=== PATIENT | female | born 1975 | race American Indian/Alaskan Native ===

== ENCOUNTER 2020-03-03 13:04 | Emergency (ER) | payer MEDICAID, OTHER ==
[2020-03-03] MEDS ORDERED: Sodium Chloride 0.9% 1,000 ML IV ONE (13:20)
--- NOTE | 2020-03-03 13:22 | EDM.PDOC ---
ED HPI GENERAL MEDICAL PROBLEM - General Chief Complaint: Abdominal Pain Stated Complaint: STOMACH PAIN Time Seen by Provider: 03/03/20 13:20 Source of Information: Reports: Patient History Limitations: Reports: No Limitations - History of Present Illness INITIAL COMMENTS - FREE TEXT/NARRATIVE: HISTORY AND PHYSICAL: History of present illness: Patient is a 44-year-old female who presents to the emergency room with complaints of incisional pain to her mid abdomen. She states approximately 1 year ago she had abdominal hernia repair and believes the provider had put mesh in. Since that time she has had some incisional pain and over the past few months has noticed blue wire/string coming from the incision site. She states she is able to pull on it approximately 1 inch out of her abdomen although feels like it is attached to something. This last summer she did have some imaging of her abdomen and was told she had and incisional abscess and was placed on antibiotics. The provider at that time had made no comment or suggestion about the blue string. Recently moved to [place] and went to the [facility] to establish care, they recommended she come here to the emergency room for evaluation. She has no drainage or surrounding redness at the incision site. Review of systems: As per history of present illness and below otherwise all systems reviewed and negative. Past medical history: As per history of present illness and as reviewed below otherwise noncontributory. Surgical history: As per history of present illness and as reviewed below otherwise noncontributory. Social history: See social history for further information Family history: As per history of present illness and as reviewed below otherwise noncontributory. Physical exam: General: Well developed and well nourished. Alert and orientated x 3. Nontoxic in appearance and in no acute distress. Vital signs are stable and have been reviewed by me. Nursing notes were reviewed. HEENT: Atraumatic, normocephalic, pupils equal and reactive bilaterally, negative for conjunctival pallor or scleral icterus, mucous membranes moist, TMs normal bilaterally, throat clear, neck supple, nontender, trachea midline. No drooling or trismus noted. No meningeal signs. No hot potato voice noted. Lungs: Clear to auscultation, breath sounds equal bilaterally, chest nontender. Normal work of breathing, no accessory muscles used. Heart: S1S2, regular rate and rhythm without overt murmur Abdomen: Soft, obese, midline scar to mid abdomen with blue sting FB noted at the distal aspect of the incision (under sternum) measuring about 0.5cm. Negative for masses or hepatosplenomegaly. Negative for costovertebral tenderness. Pelvis: Stable nontender. Skin: She has a midline scar to mid abdomen with blue sting FB noted at the distal aspect of the incision (under sternum) measuring about 0.5cm. There is scar tissue around the FB site; red but not purulent or acutely infected. Remaining skin is intact, warm, dry. No lesions or rashes noted. Hematologic: No petechiae or purpra. Mucosa appropriate color and normal nail bed color and refill. Extremities: Atraumatic, moves all extremities per self without difficulty or deficits, negative for cords or calf pain. Neurovascular unremarkable. Neuro: Awake, alert, oriented. Cranial nerves II through XII unremarkable. Cerebellum unremarkable. Motor and sensory unremarkable throughout. Exam nonfocal. Psychiatric: Mood and affect are appropriate. Normal thought process. Answering questions appropriately. Notes: Lab work is unremarkable. CT of abdomen/pelvis shows an extensive postoperative change of the anterior abdominal wall status post ventral hernia repair with postoperative superficial soft tissue thickening and peripheral soft tissue stranding. No evidence of reherniation or obstructive pathology. There is minimal abutment of the midtransverse colon without evidence of josé luis herniation. I have spoke with Dr Oden about this case, she is agreeable that this patient is able to follow up as outpatient. She happened to be in the area and took a quick look at the site. I have spoken with the patient/caregiver and discussed today's findings, in addition to providing specific details for plan of care. Reassessment at the time of disposition demonstrates that the patient is in no acute distress. The patient has remained stable throughout the entire ED visit and is without objective evidence for acute process requiring urgent intervention or hospitalization. The patient is stable for discharge, counseling was provided and we discussed in great detail signs and symptoms that would prompt them to return to the Emergency Department. Medication, follow up and supportive care measures were reviewed and discussed. Voices understanding and is agreeable to plan of care. Denies any further questions or concerns at this time. Diagnostics: CBC, CMP, UA, CT abd/pelvis Therapeutics: IV fluids Prescription: None Impression: Abdominal Pain Plan: 1. Today your lab work and CT shows no acute findings. Continue to monitor the site. 2. Tylenol and/or Ibuprofen as needed as discussed. 3. We encourage you to follow up general surgeon (Dr Oden or Dr Pinzon) in the next few days for re-evaluation and further care/management. If your symptoms should worsen, new symptoms develop or any of the signs and symptoms we discuss ed should arise please return to the emergency room or call 911 (if needed). Definitive disposition and diagnosis as appropriate pending reevaluation and review of above. Duration: Chronic - Related Data Allergies Allergy/AdvReac Type Severity Reaction Status Date / Time codeine Allergy Hives Verified 03/03/20 13:48 Home Meds: Home Meds . [No Known Home Meds] 03/03/20 [History] ED ROS GENERAL - Review of Systems Review Of Systems: Comprehensive ROS is negative, except as noted in HPI. ED EXAM, GI/ABD - Physical Exam Exam: See Below (See dictation) Course - Vital Signs Last Recorded V/S: Last Vital Signs Temp 96.5 F L 03/03/20 13:49 Pulse 79 03/03/20 13:49 Resp 18 03/03/20 13:49 BP 130/79 03/03/20 13:49 Pulse Ox 99 03/03/20 13:49 - Orders/Labs/Meds Labs: Laboratory Tests 03/03/20 03/03/20 03/03/20 Range/Units 13:57 14:12 14:12 WBC 8.21 (4.0-11.0) K/uL RBC 4.36 (4.30-5.90) M/uL Hgb 13.2 (12.0-16.0) g/dL Hct 40.4 (36.0-46.0) % MCV 92.7 (80.0-98.0) fL MCH 30.3 (27.0-32.0) pg MCHC 32.7 (31.0-37.0) g/dL RDW Std Deviation 45.3 (28.0-62.0) fl RDW Coeff of Nhung 13 (11.0-15.0) % Plt Count 292 (150-400) K/uL MPV 8.60 (7.40-12.00) fL Neut % (Auto) 51.6 (48.0-80.0) % Lymph % (Auto) 33.9 (16.0-40.0) % [place] % (Auto) 5.0 (0.0-15.0) % Eos % (Auto) 8.8 H (0.0-7.0) % Baso % (Auto) 0.7 (0.0-1.5) % Neut # (Auto) 4.2 (1.4-5.7) K/uL Lymph # (Auto) 2.8 H (0.6-2.4) K/uL [place] # (Auto) 0.4 (0.0-0.8) K/uL Eos # (Auto) 0.7 (0.0-0.7) K/uL Baso # (Auto) 0.1 (0.0-0.1) K/uL Nucleated RBC % 0.0 /100WBC Nucleated RBCs # 0 K/uL Sodium 138 (136-145) mmol/L Potassium 3.6 (3.5-5.1) mmol/L Chloride 102 (98-107) mmol/L Carbon Dioxide 24.5 (21.0-32.0) mmol/L BUN 8 (7.0-18.0) mg/dL Creatinine 0.6 (0.6-1.0) mg/dL Est Cr Clr Drug Dosing 92.66 mL/min Estimated GFR (MDRD) > 60.0 ml/min Glucose 198 H (74-106) mg/dL Calcium 9.1 (8.5-10.1) mg/dL Total Bilirubin 0.4 (0.2-1.0) mg/dL AST 39 H (15-37) IU/L ALT 52 (14-63) IU/L Alkaline Phosphatase 89 (46-116) U/L Total Protein 7.8 (6.4-8.2) g/dL Albumin 3.9 (3.4-5.0) g/dL Globulin 3.9 (2.6-4.0) g/dL Albumin/Globulin Ratio 1.0 (0.9-1.6) Urine Color YELLOW Urine Appearance CLEAR Urine pH 6.0 (5.0-8.0) Ur Specific [place] >= 1.030 (1.001-1.035) Urine Protein NEGATIVE (NEGATIVE) mg/dL Urine Glucose (UA) NEGATIVE (NEGATIVE) mg/dL Urine Ketones NEGATIVE (NEGATIVE) mg/dL Urine Occult Blood NEGATIVE (NEGATIVE) Urine Nitrite NEGATIVE (NEGATIVE) Urine Bilirubin NEGATIVE (NEGATIVE) Urine Urobilinogen 0.2 (<2.0) EU/dL Ur Leukocyte Esterase NEGATIVE (NEGATIVE) Meds: Medications Discontinued Medications Generic Name Dose Route Start Last Admin Trade Name Soumya PRN Reason Stop Dose Admin Sodium Chloride 1,000 mls @ 999 mls/hr 03/03/20 13:20 03/03/20 14:06 Normal Saline IV 03/03/20 14:20 999 mls/hr STAT ONE Administration Iopamidol 100 ml 03/03/20 15:36 03/03/20 15:37 Isovue Multipack-370 (76%) IVPUSH 03/03/20 15:37 100 ml ONETIME ONE Administration Departure - Departure Time of Disposition: 16:03 Disposition: Home, Self-Care 01 Clinical Impression: Abdominal pain Qualifiers: Abdominal location: upper abdomen, unspecified Qualified Code(s): R10.10 - Upper abdominal pain, unspecified - Discharge Information Instructions: Abdominal Pain, Adult, [id number] Referrals: PCP,None [Primary Care Provider] - Forms: ED Department Discharge Additional Instructions: The following information is given to patients seen in the emergency department who are being discharged to home. This information is to outline your options for follow-up care. We provide all patients seen in our emergency department with a follow-up referral. The need for follow-up, as well as the timing and circumstances, are variable depending upon the specifics of your emergency department visit. If you don't have a primary care physician on staff, we will provide you with a referral. We always advise you to contact your personal physician following an emergency department visit to inform them of the circumstance of the visit and for follow-up with them and/or the need for any referrals to a consulting specialist. The emergency department will also refer you to a specialist when appropriate. This referral assures that you have the opportunity for follow-up care with a specialist. All of these measure are taken in an effort to provide you with optimal care, which includes your follow-up. Under all circumstances we always encourage you to contact your private physician who remains a resource for coordinating your care. When calling for follow-up care, please make the office aware that this follow-up is from your recent emergency room visit. If for any reason you are refused follow-up, please contact the [facility] Emergency Department at and asked to speak to the emergency department charge nurse. [facility] (DR PINZON OR DR ODEN) Specialty Care - General Surgery Professional Building [address] [place] [address], [address] [place] [address] Thank you for choosing the [facility] emergency department in [place] for your medical needs today. It was a pleasure caring for you. Today you were seen in the emergency department for residual suture at postoperative site. 1. Today your lab work and CT shows no acute findings. Continue to monitor the site. 2. Tylenol and/or Ibuprofen as needed as discussed. 3. We encourage you to follow up general surgeon (Dr Oden or Dr Pinzon) in the next few days for re-evaluation and further care/management. If your symptoms should worsen, new symptoms develop or any of the signs and symptoms we discussed should arise please return to the emergency room or call 911 (if needed). Sepsis Event Note (ED) - Focused Exam Vital Signs: Vital Signs Temp Pulse Resp BP Pulse Ox 03/03/20 13:49 96.5 F L 79 18 130/79 99
[2020-03-03 14:41] LABS: BLOOD UREA NITROGEN,BUN 8 mg/dL (7.0-18.0); CARBON DIOXIDE,CO2 24.5 mmol/L (21.0-32.0); CHLORIDE,CL 102 mmol/L (98-107); GLUCOSE RANDOM 198 mg/dL (74-106); POTASSIUM,K 3.6 mmol/L (3.5-5.1); SODIUM,NA 138 mmol/L (136-145)
[2020-03-03] MEDS ORDERED: Iopamidol 755 MG/ML 500 ML Multipack Bottle IVPUSH ONE (15:36)
--- NOTE | 2020-03-03 15:53 | CT ---
Indication: Patient with abdominal pain recently had mesh in hernia placement 2 weeks ago Technique: Volumetric multidetector CT images of the abdomen and pelvis were obtained after the administration of intravenous contrast. 100 cc Isovue 370 Comparison: None available. Findings: There is minimal dependent bibasilar atelectasis versus scar. There is no dense consolidation or effusion. The liver is mildly enlarged with a padding steatosis. There is incidental note made of mild postoperative pneumobilia. The portal vein is patent. The gallbladder is surgically absent. The common bile duct is not enlarged. The spleen is normal in enhancement and size. The stomach and duodenum are grossly unremarkable. The pancreas is normal in enhancement without significant atrophy. The adrenal glands are unremarkable. The kidneys demonstrate preserved corticomedullary differentiation without evidence of obstructive uropathy. Postoperative change of the colon is appreciated status post colectomy and primary reanastomosis. There is minimal stool seen throughout the colon. The appendix is not visualized. There is no significant mesenteric, retroperitoneal, or pelvic sidewall lymph nodes. The aorta is not aneurysmal with minimal scattered atherosclerotic calcification. The solid pelvic viscera are grossly unremarkable. There is no free fluid or free air. There is extensive postoperative change of the anterior abdominal wall status post ventral hernia repair with moderate superficial soft tissue thickening and mild postoperative inflammatory stranding. There is abutment of the colon adjacent to the defect, however there is no evidence of significant reherniation or obstruction. The lumbar vertebral body heights are grossly maintained with moderate multilevel degenerative disc disease. There are pedicle screws with posterior stabilization fixation. Postoperative changes of the right hip are appreciated status post arthroplasty. Impression: Extensive postoperative change of the anterior abdominal wall status post ventral hernia repair with postoperative superficial soft tissue thickening and peripheral soft tissue stranding. No evidence of reherniation or obstructive pathology. There is minimal abutment of the midtransverse colon without evidence of josé luis herniation. Demonstration of prior cholecystectomy with minimal postoperative pneumobilia. Moderate hepatic steatosis and hepatomegaly. Otherwise, no definite acute intra-abdominal abnormality. Please note that all CT scans at this facility use dose modulation, iterative reconstruction, and/or weight-based dosing when appropriate to reduce radiation dose to as low as reasonably achievable. Dictated by Vinicius Pineda MD @ Mar 03 2020 3:46PM Signed by Dr. Vinicius Pineda @ Mar 03 2020 3:52PM
== END 2020-03-03 16:26 | disposition home or self-care (01) ==
LOC: MW.ED 13:04
DX: R10.10 Upper abdominal pain, unspecified (principal); G89.18 Other acute postprocedural pain; E66.9 Obesity, unspecified; Z88.5 Allergy status to narcotic agent
CPT/HCPCS: 36415; 74177; 80053; 81003; 85025; 99284; J7030; Q9967; 99283

== ENCOUNTER 2020-08-30 10:19 | Emergency (ER) | payer MEDICAID ==
[2020-08-30] MEDS ORDERED: Sodium Chloride 0.9% 10 ML Syringe FLUSH PRN (10:39)
[2020-08-30] MEDS ORDERED: Sodium Chloride 0.9% 2.5 ML Syringe FLUSH PRN (10:39)
[2020-08-30] MEDS ORDERED: Sodium Chloride 0.9% 1,000 ML IV ONE (10:41)
[2020-08-30] MEDS ORDERED: Ondansetron 4 MG/2 ML SDV IVPUSH ONE (10:41)
[2020-08-30] MEDS ORDERED: Morphine 4 MG/ML Syringe IVPUSH ONE (10:43)
--- NOTE | 2020-08-30 11:01 | EDM.PDOC ---
ED HPI GENERAL MEDICAL PROBLEM - General Chief Complaint: Abdominal Pain Stated Complaint: STOMACHE PAIN Time Seen by Provider: 08/30/20 10:27 Source of Information: Reports: Patient History Limitations: Reports: No Limitations - History of Present Illness INITIAL COMMENTS - FREE TEXT/NARRATIVE: HISTORY AND PHYSICAL: History of present illness: Patient is a 45-year-old female who presents to the emergency room with complaints of right sided abdominal pain. She reports she has had postsurgical hernia complications since 2019. She states she has had wound dehiscence and "blue wire" exposed and needing to be removed. Surgery done at [facility] in [place]. She has also seen Dr. Oden for postoperative complications. Over the past 2 weeks she has had some right-sided abdominal pain that is progressively gotten worse. Patient denies any fever, chills, headache, change in vision, syncope or near syncope. Denies any chest pain, back pain, shortness of breath or cough. Denies any nausea, vomiting, diarrhea, constipation or dysuria. Has not noted any blood in urine or stool. Patient has been eating and drinking appropriately. She has had an appendectomy, cholecystectomy and multiple hernia repairs. Review of systems: As per history of present illness and below otherwise all systems reviewed and negative. Past medical history: As per history of present illness and as reviewed below otherwise noncontributory. Surgical history: As per history of present illness and as reviewed below otherwise noncontributory. Social history: See social history for further information Family history: As per history of present illness and as reviewed below otherwise noncontributory. Physical exam: General: Well developed and well nourished. Alert and orientated x 3. Nontoxic in appearance and in no acute distress. Vital signs are stable and have been reviewed by me. Nursing notes were reviewed. HEENT: Atraumatic, normocephalic, pupils equal and reactive bilaterally, negative for conjunctival pallor or scleral icterus, mucous membranes moist, TMs normal bilaterally, throat clear, neck supple, nontender, trachea midline. No drooling or trismus noted. No meningeal signs. No hot potato voice noted. Lungs: Clear to auscultation bilaterally. No wheezes, rales, or rhonchi. Chest nontender. Normal work of breathing, no accessory muscles used. Heart: S1S2, regular rate and rhythm without overt murmur, gallops, or rubs. No JVD. No peripheral edema Abdomen: Soft, nondistended, nontender. Normoactive bowel sounds. Negative for masses or costovertebral tenderness. Pelvis: Stable nontender. Genitourinary/Rectal: Deferred. Skin: Multiple horizontal and vertical scars noted to the abdomen. There is a midline scar that does have 2 small circular wound dehiscence with intact, warm, dry. No lesions or rashes noted. Hematologic: No petechiae or purpra. Mucosa appropriate color and normal nail bed color and refill. Extremities: Atraumatic, moves all extremities per self without difficulty or deficits, negative for cords or calf pain. Neurovascular unremarkable. Neuro: Awake, alert, oriented. Cranial nerves II through XII unremarkable. Cerebellum unremarkable. Motor and sensory unremarkable throughout. Exam nonfocal. Psychiatric: Mood and affect are appropriate. Normal thought process. Answering questions appropriately. Notes: *This patient was seen and evaluated during the 2019 SARS-CoV-2 novel coronavirus pandemic period. Community viral transmission is ongoing at time of this encounter and the emergency department is operating under pandemic response procedures. Lab work is unremarkable. She did have an elevated lactate without white count. No concern for systemic infection, she did receive IV fluids while here. CT shows an interval development of inflammatory changes of a fat containing incisional hernia within the hernia sac as well as in the adjacent omentum. Finding could represent incarceration of a fat containing hernia versus developing omental infarct. Otherwise, stable postoperative changes of the abdomen status post small bowel resection and primary anastomosis. Stable prior cholecystectomy with moderate pneumobilia. Stable hepatosplenomegaly and hepatic steatosis. Patient states she feels much better after the fluids medications. She says she is the most comfortable she has been in several days. I did consult Dr. Oden, general surgeon who is on-call and has also taken care of this patient in the past. She reviewed the CT results and the CT itself, will follow up with her as an outpatient. Did discuss with patient since she is a complex hernia repair that may need further management at some point, a provider in [place] who does these type of cases. I have talked with the patient about today's findings, in addition to providing specific details for plan of care. Reassessment at the time of disposition demonstrates that the patient is in no acute distress. The patient is stable for discharge, counseling was provided and we discussed in great detail signs and symptoms that would prompt them to return to the Emergency Department. Medication, follow up and supportive care measures were reviewed and discussed. Voices understanding and is agreeable to plan of care. Denies any further questions or concerns at this time. Diagnostics: CBC, CMP, Lipase, UA, CT abd/pelvis, COVID Therapeutics: IV fluids, Morphine Prescription: Lodi, Zofran Impression: Abdominal Pain Plan: 1. You were evaluated today on an emergent basis. Your lab work was normal. The CT shows inflammation around your hernia repair sites. Since you are a complex case if your symptoms should worsen, new symptoms develop or any of the signs and symptoms we discussed should arise please return to the emergency room or call 911 (if needed). 2. You can alternate Tylenol and ibuprofen as needed for pain and fever management. Lodi for moderate to severe pain. This medication may cause drowsiness so do not take it while driving or needing to be functioning outside of the house. I have given you some Zofran for nausea management. 3. We encourage you to follow up with Dr Oden, call today to set up an outpatient follow up appointment, in the next few days for re-evaluation and further care/management. Definitive disposition and diagnosis as appropriate pending reevaluation and review of above. right sided abdomen Pain Score (Numeric/FACES): 9 - Related Data Allergies Allergy/AdvReac Type Severity Reaction Status Date / Time codeine Allergy Hives Verified 08/30/20 10:41 Home Meds: Home Meds Acetaminophen/HYDROcodone [Lodi 325-5 MG] 1 - 2 tab PO Q4H #20 tablet 08/30/20 [Rx] Ondansetron [Zofran ODT] 4 mg PO Q6H PRN #8 tab.dis 08/30/20 [Rx] Past Medical History Cardiovascular History: Reports: High Cholesterol, Hypertension Other CERTIFICATION TECHNICIAN History: breast reduction Other Musculoskeletal History: LTKA, L femur, 2 TKA, back sx, Bilateral Hip replaced Neurological History: Reports: Other (See Below) Other Neuro History: 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 Psychiatric History: Reports: Anxiety, Depression Endocrine/Metabolic History: Reports: Diabetes, Type II - Infectious Disease History Infectious Disease History: Reports: Novel Coronavirus - Past Surgical History GI Surgical History: Reports: Appendectomy, Cholecystectomy, Hernia, Abdominal Other GI Surgeries/Procedures: mulitple hernia repairs Social & Family History - Family History Family Medical History: No Pertinent Family History - Tobacco Use Tobacco Use Status *Q: Never Tobacco User - Caffeine Use Caffeine Use: Reports: None - Recreational Drug Use Recreational Drug Use: No ED ROS GENERAL - Review of Systems Review Of Systems: Comprehensive ROS is negative, except as noted in HPI. ED EXAM, GI/ABD - Physical Exam Exam: See Below (See dictation) Course - Vital Signs Last Recorded V/S: Last Vital Signs Temp 96.8 F L 08/30/20 10:38 Pulse 79 08/30/20 12:14 Resp 20 08/30/20 10:38 BP 127/65 08/30/20 12:14 Pulse Ox 97 08/30/20 12:14 - Orders/Labs/Meds Orders: Active Orders 24 hr Category Date Time Status Sodium Chloride 0.9% [Saline Flush] Med 08/30/20 10:39 Active 10 ml FLUSH ASDIRECTED PRN Sodium Chloride 0.9% [Saline Flush] Med 08/30/20 10:39 Active 2.5 ml FLUSH ASDIRECTED PRN Saline Lock Insert [OM.PC] Stat Oth 08/30/20 10:39 Ordered Medication Orders Sodium Chloride (Sodium Chloride 0.9% 10 Ml Syringe) 10 ml FLUSH ASDIRECTED PRN PRN Reason: Keep Vein Open Last Admin: 08/30/20 10:55 Dose: 10 ml Documented by: [id number] Sodium Chloride (Sodium Chloride 0.9% 2.5 Ml Syringe) 2.5 ml FLUSH ASDIRECTED PRN PRN Reason: Keep Vein Open Last Admin: 08/30/20 10:55 Dose: 2.5 ml Documented by: [id number] Labs: Laboratory Tests 08/30/20 08/30/20 08/30/20 Range/Units 10:47 10:47 10:47 WBC 8.48 (4.0-11.0) K/uL RBC 4.47 (4.30-5.90) M/uL Hgb 13.5 (12.0-16.0) g/dL Hct 41.2 (36.0-46.0) % MCV 92.2 (80.0-98.0) fL MCH 30.2 (27.0-32.0) pg MCHC 32.8 (31.0-37.0) g/dL RDW Std Deviation 42.1 (28.0-62.0) fl RDW Coeff of Nhung 13 (11.0-15.0) % Plt Count 272 (150-400) K/uL MPV 9.00 (7.40-12.00) fL Neut % (Auto) 59.6 (48.0-80.0) % Lymph % (Auto) 30.3 (16.0-40.0) % [place] % (Auto) 4.7 (0.0-15.0) % Eos % (Auto) 5.0 (0.0-7.0) % Baso % (Auto) 0.4 (0.0-1.5) % Neut # (Auto) 5.1 (1.4-5.7) K/uL Lymph # (Auto) 2.6 H (0.6-2.4) K/uL [place] # (Auto) 0.4 (0.0-0.8) K/uL Eos # (Auto) 0.4 (0.0-0.7) K/uL Baso # (Auto) 0.0 (0.0-0.1) K/uL Nucleated RBC % 0.0 /100WBC Nucleated RBCs # 0 K/uL Lactate 2.8 H* (0.20-2.00) mmol/L Sodium 134 L (136-145) mmol/L Potassium 3.9 (3.5-5.1) mmol/L Chloride 99 (98-107) mmol/L Carbon Dioxide 25.9 (21.0-32.0) mmol/L BUN 4 L (7.0-18.0) mg/dL Creatinine 0.8 (0.6-1.0) mg/dL Est Cr Clr Drug Dosing 68.76 mL/min Estimated GFR (MDRD) > 60.0 ml/min Glucose 481 H (74-106) mg/dL Calcium 8.6 (8.5-10.1) mg/dL Total Bilirubin 0.3 (0.2-1.0) mg/dL AST 36 (15-37) IU/L ALT 47 (14-63) IU/L Alkaline Phosphatase 141 H (46-116) U/L Total Protein 8.1 (6.4-8.2) g/dL Albumin 3.2 L (3.4-5.0) g/dL Globulin 4.9 H (2.6-4.0) g/dL Albumin/Globulin Ratio 0.7 L (0.9-1.6) Lipase 84 (73-393) U/L Urine Color Urine Appearance Urine pH (5.0-8.0) Ur Specific [place] (1.001-1.035) Urine Protein (NEGATIVE) mg/dL Urine Glucose (UA) (NEGATIVE) mg/dL Urine Ketones (NEGATIVE) mg/dL Urine Occult Blood (NEGATIVE) Urine Nitrite (NEGATIVE) Urine Bilirubin (NEGATIVE) Urine Urobilinogen (<2.0) EU/dL Ur Leukocyte Esterase (NEGATIVE) SARS-CoV-2 RNA (SESAR) (NEGATIVE) 08/30/20 08/30/20 Range/Units 10:59 11:05 WBC (4.0-11.0) K/uL RBC (4.30-5.90) M/uL Hgb (12.0-16.0) g/dL Hct (36.0-46.0) % MCV (80.0-98.0) fL MCH (27.0-32.0) pg MCHC (31.0-37.0) g/dL RDW Std Deviation (28.0-62.0) fl RDW Coeff of Nhung (11.0-15.0) % Plt Count (150-400) K/uL MPV (7.40-12.00) fL Neut % (Auto) (48.0-80.0) % Lymph % (Auto) (16.0-40.0) % [place] % (Auto) (0.0-15.0) % Eos % (Auto) (0.0-7.0) % Baso % (Auto) (0.0-1.5) % Neut # (Auto) (1.4-5.7) K/uL Lymph # (Auto) (0.6-2.4) K/uL [place] # (Auto) (0.0-0.8) K/uL Eos # (Auto) (0.0-0.7) K/uL Baso # (Auto) (0.0-0.1) K/uL Nucleated RBC % /100WBC Nucleated RBCs # K/uL Lactate (0.20-2.00) mmol/L Sodium (136-145) mmol/L Potassium (3.5-5.1) mmol/L Chloride (98-107) mmol/L Carbon Dioxide (21.0-32.0) mmol/L BUN (7.0-18.0) mg/dL Creatinine (0.6-1.0) mg/dL Est Cr Clr Drug Dosing mL/min Estimated GFR (MDRD) ml/min Glucose (74-106) mg/dL Calcium (8.5-10.1) mg/dL Total Bilirubin (0.2-1.0) mg/dL AST (15-37) IU/L ALT (14-63) IU/L Alkaline Phosphatase (46-116) U/L Total Protein (6.4-8.2) g/dL Albumin (3.4-5.0) g/dL Globulin (2.6-4.0) g/dL Albumin/Globulin Ratio (0.9-1.6) Lipase (73-393) U/L Urine Color YELLOW Urine Appearance CLEAR Urine pH 5.5 (5.0-8.0) Ur Specific [place] 1.010 (1.001-1.035) Urine Protein NEGATIVE (NEGATIVE) mg/dL Urine Glucose (UA) >=1000 (NEGATIVE) mg/dL Urine Ketones NEGATIVE (NEGATIVE) mg/dL Urine Occult Blood NEGATIVE (NEGATIVE) Urine Nitrite NEGATIVE (NEGATIVE) Urine Bilirubin NEGATIVE (NEGATIVE) Urine Urobilinogen 0.2 (<2.0) EU/dL Ur Leukocyte Esterase NEGATIVE (NEGATIVE) SARS-CoV-2 RNA (SESAR) NEGATIVE (NEGATIVE) Meds: Medications Generic Name Dose Route Start Last Admin Trade Name Freq PRN Reason Stop Dose Admin Sodium Chloride 10 ml 08/30/20 10:39 08/30/20 10:55 Sodium Chloride 0.9% 10 Ml Syringe FLUSH 10 ml ASDIRECTED PRN Administration Keep Vein Open Sodium Chloride 2.5 ml 08/30/20 10:39 08/30/20 10:55 Sodium Chloride 0.9% 2.5 Ml Syringe FLUSH 2.5 ml ASDIRECTED PRN Administration Keep Vein Open Discontinued Medications Generic Name Dose Route Start Last Admin Trade Name Freq PRN Reason Stop Dose Admin Sodium Chloride 1,000 mls @ 999 mls/hr 08/30/20 10:41 08/30/20 10:55 Normal Saline IV 08/30/20 11:41 999 mls/hr STAT ONE Administration Morphine Sulfate 4 mg 08/30/20 10:43 08/30/20 10:55 Morphine 4 Mg/Ml Syringe IVPUSH 08/30/20 10:44 4 mg ONETIME ONE Administration Ondansetron HCl 4 mg 08/30/20 10:41 08/30/20 10:55 Ondansetron 4 Mg/2 Ml Sdv IVPUSH 08/30/20 10:42 4 mg ONETIME ONE Administration Departure - Departure Time of Disposition: 13:10 Disposition: Home, Self-Care 01 Clinical Impression: Abdominal pain Qualifiers: Abdominal location: upper abdomen, unspecified Qualified Code(s): R10.10 - Upper abdominal pain, unspecified - Discharge Information Prescriptions: Acetaminophen/HYDROcodone [Lodi 325-5 MG] 1 - 2 tab PO Q4H #20 tablet Ondansetron [Zofran ODT] 4 mg PO Q6H PRN #8 tab.dis PRN Reason: Nausea Instructions: Abdominal Pain, Adult, [id number] Referrals: Kinga Mackey DO [Primary Care Provider] - Forms: ED Department Discharge Additional Instructions: The following information is given to patients seen in the emergency department who are being discharged to home. This information is to outline your options for follow-up care. We provide all patients seen in our emergency department with a follow-up referral. The need for follow-up, as well as the timing and circumstances, are variable depending upon the specifics of your emergency department visit. If you don't have a primary care physician on staff, we will provide you with a referral. We always advise you to contact your personal physician following an emergency department visit to inform them of the circumstance of the visit and for follow-up with them and/or the need for any referrals to a consulting specialist. The emergency department will also refer you to a specialist when appropriate. This referral assures that you have the opportunity for follow-up care with a specialist. All of these measure are taken in an effort to provide you with optimal care, which includes your follow-up. Under all circumstances we always encourage you to contact your private physician who remains a resource for coordinating your care. When calling for follow-up care, please make the office aware that this follow-up is from your recent emergency room visit. If for any reason you are refused follow-up, please contact the [facility] Emergency Department at and asked to speak to the emergency department charge nurse. [facility] [address] [place] [address] [facility] [address] [place] [address] Thank you for choosing the [facility] emergency department in [place] for your medical needs today. It was a pleasure caring for you. Today you were seen in the emergency department for abdominal pain. 1. You were evaluated today on an emergent basis. Your lab work was normal. The CT shows inflammation around your hernia repair sites. Since you are a complex case if your symptoms should worsen, new symptoms develop or any of the signs and symptoms we discussed should arise please return to the emergency room or call 911 (if needed). 2. You can alternate Tylenol and ibuprofen as needed for pain and fever management. Lodi for moderate to severe pain. This medication may cause drowsiness so do not take it while driving or needing to be functioning outside of the house. I have given you some Zofran for nausea management. 3. We encourage you to follow up with Dr Oden, call today to set up an outpatient follow up appointment, in the next few days for re-evaluation and further care/management. Sepsis Event Note (ED) - Evaluation Sepsis Screening Result: No Definite Risk - Focused Exam Vital Signs: Vital Signs Temp Pulse Resp BP Pulse Ox 08/30/20 12:14 79 127/65 97 08/30/20 11:30 78 127/76 94 L 08/30/20 10:38 96.8 F L 85 20 131/83 94 L - My Orders Last 24 Hours: My Active Orders 08/30/20 10:39 Sodium Chloride 0.9% [Saline Flush] 10 ml FLUSH ASDIRECTED PRN Sodium Chloride 0.9% [Saline Flush] 2.5 ml FLUSH ASDIRECTED PRN Saline Lock Insert [OM.PC] Stat - Assessment/Plan Last 24 Hours: My Active Orders 08/30/20 10:39 Sodium Chloride 0.9% [Saline Flush] 10 ml FLUSH ASDIRECTED PRN Sodium Chloride 0.9% [Saline Flush] 2.5 ml FLUSH ASDIRECTED PRN Saline Lock Insert [OM.PC] Stat
[2020-08-30 11:23] LABS: BLOOD UREA NITROGEN,BUN 4 mg/dL (7.0-18.0); CARBON DIOXIDE,CO2 25.9 mmol/L (21.0-32.0); CHLORIDE,CL 99 mmol/L (98-107); GLUCOSE RANDOM 481 mg/dL (74-106); LIPASE 84 U/L (73-393); POTASSIUM,K 3.9 mmol/L (3.5-5.1); SODIUM,NA 134 mmol/L (136-145)
--- NOTE | 2020-08-30 12:54 | CT ---
Indication: Abdominal pain Technique: Volumetric multidetector CT images of the abdomen and pelvis were obtained after the administration of intravenous contrast. 75 cc Isovue 370 low osmolar intravenous contrast Comparison: CT abdomen and pelvis April 18, 2020 Findings: There is bibasilar atelectasis and parenchymal scar. There is again seen moderate hepatomegaly and hepatic steatosis with moderate pneumobilia. The portal vein is patent. The gallbladder is surgically absent. There is pneumobilia within the common bile duct again seen. The spleen is normal in enhancement and size. The stomach and duodenum are grossly unremarkable. The pancreas is normal in enhancement without significant atrophy. The adrenal glands are unremarkable. The kidneys demonstrate preserved corticomedullary differentiation without evidence of obstructive uropathy. There is a moderate amount of stool seen throughout the colon with postoperative change of the colon and small bowel status post likely resection and primary anastomosis. The appendix is not well visualized. There is no significant mesenteric, retroperitoneal, or pelvic sidewall lymph nodes. The aorta is nonaneurysmal. There is no significant atherosclerotic disease appreciated. The solid pelvic viscera are grossly unremarkable. There is no free fluid or free air. There is redemonstration of a fat can ventral hernia which demonstrates interval development of focal inflammatory change which may represent incarceration. Additionally, a focal omental infarct at this location is considered within the differential. This finding is appreciated on series 201 images 80 through 92. The lumbar vertebral body heights are grossly maintained with mild multi-level degenerative disc disease. There is mild anterolisthesis of L4 on L5. Postoperative change of the L5-S1 level is again seen. There is demonstration of right hip total arthroplasty. Impression: Interval development of inflammatory changes of a fat containing incisional hernia within the hernia sac as well as in the adjacent omentum. Finding could represent incarceration of a fat containing hernia versus developing omental infarct. Otherwise, stable postoperative changes of the abdomen status post small bowel resection and primary anastomosis. Stable prior cholecystectomy with moderate pneumobilia. Stable hepatosplenomegaly and hepatic steatosis. Please note that all CT scans at this facility use dose modulation, iterative reconstruction, and/or weight-based dosing when appropriate to reduce radiation dose to as low as reasonably achievable. Dictated by Vinicius Pineda MD @ 08/30/2020 12:53:[address] Vinicius Pineda @ Aug 30 2020 12:53PM
[2020-08-30] MEDS ORDERED: Iopamidol 755 MG/ML 500 ML Multipack Bottle IVPUSH STA (18:46)
== END 2020-08-30 13:31 | disposition home or self-care (01) ==
LOC: MW.ED 10:19
DX: R10.11 Right upper quadrant pain (principal); E78.00 Pure hypercholesterolemia, unspecified; I10 Essential (primary) hypertension; E11.9 Type 2 diabetes mellitus without complications; Z88.5 Allergy status to narcotic agent; Z20.822 Contact with and (suspected) exposure to COVID-19
CPT/HCPCS: 74177; 80053; 81003; 83605; 83690; 85025; 87635; 96374; 96375; 99284; J2270; J2405; J7030; Q9967; U0002

== ENCOUNTER 2021-06-12 14:22 | Emergency (ER) | payer MEDICAID | END 2021-06-12 15:03 | disposition home or self-care (01) | LOC: MW.ED 14:22 | DX: J02.9 Acute pharyngitis, unspecified (principal); E11.9 Type 2 diabetes mellitus without complications; Z88.5 Allergy status to narcotic agent; Z79.84 Long term (current) use of oral hypoglycemic drugs | CPT/HCPCS: 99282 ==

== ENCOUNTER → 2021-08-12 | Emergency (ER) | payer MEDICAID ==
[~2021-08-12] MED LIST: Acetaminophen/HYDROcodone 325-5 MG Tab PO ONE; Acyclovir 200 MG Cap PO ONE; Doxycycline 100 MG Cap PO ONE
== END | disposition home or self-care (01) ==
LOC: MW.ED 16:59
DX: B02.8 Zoster with other complications (principal); I10 Essential (primary) hypertension; E78.00 Pure hypercholesterolemia, unspecified; E11.9 Type 2 diabetes mellitus without complications; Z79.84 Long term (current) use of oral hypoglycemic drugs; Z79.899 Other long term (current) drug therapy; Z88.8 Allergy status to other drugs, medicaments and biological substances
CPT/HCPCS: 73630; 99283; A9270; 99284

== ENCOUNTER 2021-10-02 14:11 | Emergency (ER) | payer MEDICAID ==
[2021-10-02] MEDS ORDERED: diphenhydrAMINE 50 MG/ML SDV IVPUSH ONE (14:43)
[2021-10-02] MEDS ORDERED: Sodium Chloride 0.9% 1,000 ML IV ONE ×2 (14:43→16:42)
[2021-10-02] MEDS ORDERED: Metoclopramide 10 MG/2 ML SDV IVPUSH ONE (14:43)
[2021-10-02] MEDS ORDERED: Acetaminophen/Butalbital/Caffeine 325-50-40 MG Tab PO ONE (14:44)
[2021-10-02 15:47] LABS: CORONAVIRUS COVID-19 NAA NEGATIVE (NEGATIVE); INFLUENZA A NAA NEGATIVE (NEGATIVE); INFLUENZA B NAA NEGATIVE (NEGATIVE)
[2021-10-02 15:59] LABS: BLOOD UREA NITROGEN,BUN 6 mg/dL (7.0-18.0); CARBON DIOXIDE,CO2 26.1 mmol/L (21.0-32.0); CHLORIDE,CL 96 mmol/L (98-107); GLUCOSE RANDOM 309 mg/dL (74-106); POTASSIUM,K 3.2 mmol/L (3.5-5.1); SODIUM,NA 133 mmol/L (136-145)
[2021-10-02] MEDS ORDERED: Iopamidol 755 MG/ML 500 ML Multipack Bottle IVPUSH STA (16:20)
[2021-10-02] MEDS ORDERED: Potassium Chloride 20 MEQ Tab.ER PO ONE (16:31)
[2021-10-02] MEDS ORDERED: Magnesium Sulfate/Water 2 GM in Premix Bag 1 BAG IV ONE (16:32)
[2021-10-02] MEDS ORDERED: Ketorolac 30 MG/ML SDV IVPUSH ONE (16:41)
[2021-10-02] MEDS ORDERED: Ondansetron 4 MG/2 ML SDV IVPUSH ONE (18:15)
== END 2021-10-02 19:47 | disposition home or self-care (01) ==
LOC: MW.ED 14:11
DX: R51.9 Headache, unspecified (principal); E87.6 Hypokalemia; E11.65 Type 2 diabetes mellitus with hyperglycemia; E83.42 Hypomagnesemia; I10 Essential (primary) hypertension; Z20.822 Contact with and (suspected) exposure to COVID-19; Z86.16 Personal history of COVID-19; Z90.49 Acquired absence of other specified parts of digestive tract; Z79.899 Other long term (current) drug therapy; Z88.5 Allergy status to narcotic agent
CPT/HCPCS: 0240U; 36415; 70450; 70496; 70498; 80053; 82009; 83735; 85025; 96361; 96365; 96375; 99284; A9270; J1200; J1885; J2405; J2765; J3475; J7030; Q9967; 99285

== ENCOUNTER 2021-12-20 15:53 | Emergency (ER) | payer MEDICAID ==
[2021-12-20] MEDS ORDERED: Lidocaine/Epineph/Tetracaine 3 ML Syringe TOP ONE (16:10)
[2021-12-20] MEDS ORDERED: predniSONE 20 MG Tab PO ONE (16:14)
[2021-12-20] MEDS ORDERED: Sulfamethoxazole/Trimethoprim 800-160 MG Tab PO ONE (16:14)
== END 2021-12-20 16:40 | disposition home or self-care (01) ==
LOC: MW.ED 15:53
DX: L73.9 Follicular disorder, unspecified (principal); E78.00 Pure hypercholesterolemia, unspecified; I10 Essential (primary) hypertension; Z86.16 Personal history of COVID-19; E11.9 Type 2 diabetes mellitus without complications; Z88.5 Allergy status to narcotic agent; Z79.899 Other long term (current) drug therapy; Z79.84 Long term (current) use of oral hypoglycemic drugs
CPT/HCPCS: 99282; A9270; 99283

== ENCOUNTER 2021-12-23 19:41 | Inpatient (IN) | payer MEDICAID ==
[2021-12-23] MEDS ORDERED: Acetaminophen 500 MG Tab PO ONE (22:23)
[2021-12-23] MEDS ORDERED: Sodium Chloride 0.9% 1,000 ML IV ONE (22:23)
[2021-12-23] MEDS ORDERED: Ondansetron 4 MG/2 ML SDV IVPUSH ONE (22:23)
[2021-12-23] MEDS ORDERED: Morphine 4 MG/ML VIAL IVPUSH ONE (22:25)
[2021-12-23 23:34] LABS: CARBON DIOXIDE,CO2 26.9 mmol/L (21.0-32.0); POTASSIUM,K 4.4 mmol/L (3.5-5.1)
[2021-12-23] MEDS ORDERED: Lactated Ringers 1,000 ML IV ONE (23:45)
[2021-12-24] MEDS ORDERED: Iopamidol 755 MG/ML 500 ML Multipack Bottle IVPUSH ONE (00:06)
[2021-12-24] MEDS ORDERED: Piperacillin/Tazobactam 4.5 GM in Sodium Chloride 0.9% 100 ML IV ONE (01:02)
[2021-12-24] MEDS ORDERED: Lidocaine/Prilocaine 2.5-2.5% Crm 5 GM Tube TOP ONE (01:14)
[2021-12-24] MEDS ORDERED: Lidocaine 1% 5 ML VIAL INJECT ONE (01:20)
[2021-12-24] MEDS ORDERED: Morphine 4 MG/ML VIAL IVPUSH ONE (02:14)
[2021-12-24] MEDS ORDERED: Acetaminophen 325 MG Tab PO ONE (02:14)
[2021-12-24] MEDS ORDERED: Prochlorperazine 10 MG in Sodium Chloride 0.9% 50 ML IV ONE (03:17)
[2021-12-24] MEDS ORDERED: Ketorolac 30 MG/ML SDV IVPUSH ONE (03:17)
[2021-12-24] MEDS ORDERED: Ketorolac 30 MG/ML SDV ONE (03:49)
[2021-12-24] MEDS ORDERED: Prochlorperazine 10 MG/2 ML SDV ONE (03:49)
[2021-12-24 05:59] LABS: CARBON DIOXIDE,CO2 25.7 mmol/L (21.0-32.0); POTASSIUM,K 4.4 mmol/L (3.5-5.1)
[2021-12-24] MEDS ORDERED: Insulin Regular, Human 100 Units/ML 10 ML Vial IVPUSH ONE (06:20)
[2021-12-24] MEDS ORDERED: 50% Dextrose in Water 50 ML Syringe IVPUSH PRN ×2 (06:20→09:48)
[2021-12-24] MEDS ORDERED: Glucagon,Human Recombinant 1 MG Vial IM PRN ×2 (06:20→09:48)
[2021-12-24] MEDS ORDERED: Lactated Ringers 1,000 ML IV ONE (06:21)
[2021-12-24] MEDS ORDERED: Morphine 2 MG/ML SYRINGE IVPUSH PRN (09:42)
[2021-12-24] MEDS ORDERED: Ondansetron 4 MG/2 ML SDV IVPUSH PRN (09:42)
[2021-12-24] MEDS ORDERED: Sodium Chloride 0.9% 10 ML Syringe FLUSH PRN (09:42)
[2021-12-24] MEDS ORDERED: Sodium Chloride 0.9% 2.5 ML Syringe FLUSH PRN (09:42)
[2021-12-24] MEDS ORDERED: Docusate Sodium 100 MG Cap PO PRN (09:42)
[2021-12-24] MEDS ORDERED: oxyCODONE 5 MG Tab PO PRN (09:42)
[2021-12-24] MEDS ORDERED: Piperacillin/Tazobactam 3.375 GM in Sodium Chloride 0.9% 50 ML IV SCH (10:00)
[2021-12-24] MEDS: Lactated Ringers 1,000 ML IV SCH ×3 (11:28→20:30)
[2021-12-24] MEDS: Enoxaparin 40 MG/0.4 ML Syringe SUBCUT SCH (11:43)
[2021-12-24] MEDS: Insulin Aspart 100 Units/ML 3 ML Pen SUBCUT SCH ×2 (11:52→17:21)
[2021-12-24 12:52] LABS: HEMOGLOBIN A1C 11.3 %
[2021-12-24] MEDS: Piperacillin/Tazobactam 3.375 GM in Sodium Chloride 0.9% 50 ML IV SCH ×2 (17:21→23:43)
[2021-12-24] MEDS: Acetaminophen 325 MG Tab PO PRN (20:31)
[2021-12-24] MEDS ORDERED: Insulin Glargine,Hum.Rec.Anlog 100 UNIT/ML 3 ML Pen SUBCUT SCH (21:00)
[2021-12-25] MEDS: Lactated Ringers 1,000 ML IV SCH ×3 (01:32→11:54)
[2021-12-25] MEDS: Piperacillin/Tazobactam 3.375 GM in Sodium Chloride 0.9% 50 ML IV SCH (06:35)
[2021-12-25 07:10] LABS: CARBON DIOXIDE,CO2 30.8 mmol/L (21.0-32.0)
[2021-12-25] MEDS: Insulin Aspart 100 Units/ML 3 ML Pen SUBCUT SCH ×2 (08:08→11:43)
[2021-12-25] MEDS: Acetaminophen 325 MG Tab PO PRN (08:58)
[2021-12-25] MEDS: Enoxaparin 40 MG/0.4 ML Syringe SUBCUT SCH (09:01)
[2021-12-25] MEDS ORDERED: Doxycycline 100 MG Cap PO SCH (11:30)
== END 2021-12-25 14:10 | disposition home or self-care (01) | DRG 638 ==
LOC: MW.ED 19:41 → MW.MS 12-24 09:40
PROVIDERS: ADMIT Student in an Organized Health Care Education/Training Program; ATTEND Internal Medicine
PROC: 0H91XZZ Drainage of Face Skin, External Approach (ICD-10-PCS; principal; 2021-12-23)
DX: E11.628 Type 2 diabetes mellitus with other skin complications (principal); L03.211 Cellulitis of face; L02.01 Cutaneous abscess of face; R74.02 Elevation of levels of lactic acid dehydrogenase [LDH]; E11.65 Type 2 diabetes mellitus with hyperglycemia; Z79.899 Other long term (current) drug therapy; I10 Essential (primary) hypertension; E78.00 Pure hypercholesterolemia, unspecified; F41.9 Anxiety disorder, unspecified; F32.A Depression, unspecified; Z96.659 Presence of unspecified artificial knee joint; Z20.822 Contact with and (suspected) exposure to COVID-19; Z96.643 Presence of artificial hip joint, bilateral; Z88.5 Allergy status to narcotic agent; Z79.4 Long term (current) use of insulin; Z86.16 Personal history of COVID-19; Z90.49 Acquired absence of other specified parts of digestive tract; Z98.890 Other specified postprocedural states
CPT/HCPCS: 36415 ×2; 70470; 80053 ×2; 82947; 83036; 83605 ×3; 85025; 85610; 85652; 86140; 87040 ×2; 87070; 87205; 87635; A9270; J0780; J1815; J1885; J2270 ×2; J2405; J2543; J3370; J3490; J7030; J7050; J7120 ×2; Q9967; 80048; 80202; 87077; 87186; 96361; 96365; 96367; 96375; 96376; 99284-25; 99285; J1650; U0002

== ENCOUNTER 2022-06-21 23:43 | Emergency (ER) | payer MEDICAID ==
[2022-06-22] MEDS ORDERED: Acetaminophen 325 MG Tab PO ONE (01:36)
[2022-06-22] MEDS ORDERED: Lidocaine 5% 700 MG Patch TOP ONE (01:36)
[2022-06-22] MEDS ORDERED: Ibuprofen 400 MG Tab PO ONE (01:36)
== END 2022-06-22 02:59 | disposition left against medical advice (07) ==
LOC: MW.ED 23:43
DX: Z53.21 Procedure and treatment not carried out due to patient leaving prior to being seen by health care provider (principal)
CPT/HCPCS: A9270 ×3; 99283

== ENCOUNTER 2023-01-06 19:04 | Emergency (ER) | payer MEDICAID ==
[2023-01-06] MEDS ORDERED: Lidocaine 4% 1 each Patch TOP PRN (19:34)
[2023-01-06] MEDS ORDERED: Ketorolac 30 MG/ML SDV IM ONE (19:34)
== END 2023-01-06 20:47 | disposition home or self-care (01) ==
LOC: MW.ED 19:04
DX: M54.12 Radiculopathy, cervical region (principal); I10 Essential (primary) hypertension; E11.9 Type 2 diabetes mellitus without complications; Z88.5 Allergy status to narcotic agent; Z79.4 Long term (current) use of insulin; Z86.16 Personal history of COVID-19
CPT/HCPCS: 82947; 96372; 99283; A9270; J1885; J3360

== ENCOUNTER 2023-06-12 11:37 | Emergency (ER) | payer MEDICAID ==
[2023-06-12 12:25] LABS: BASOPHILS ABSOLUTE AUTO 0.07 K/uL (0.00-0.20); BASOPHILS PERCENT AUTO 0.9 % (0.0-1.0); EOSINOPHILS ABSOLUTE AUTO 0.22 K/uL (0.00-0.45); EOSINOPHILS PERCENT AUTO 2.8 % (0.0-6.0); HEMATOCRIT 41.5 % (37.0-47.0); HEMOGLOBIN 13.8 g/dL (12.0-16.0); IMMATURE GRAN ABSOLUTE AUTO 0.02 K/uL (0.00-0.05); IMMATURE GRAN PERCENT AUTO 0.3 % (0.0-0.4); LYMPHOCYTES ABSOLUTE AUTO 2.75 K/uL (1.00-4.80); LYMPHOCYTES PERCENT AUTO 34.7 % (24.0-44.0); MEAN CORPUSCULAR HEMOGLOBIN 30.3 pg (28.0-32.0); MEAN CORPUSCULAR HGB CONC 33.3 g/dL (32.0-36.0); MEAN CORPUSCULAR VOLUME 91.2 fL (83.0-99.0); MEAN PLATELET VOLUME 8.3 fL (9.4-12.3); MONOCYTES ABSOLUTE AUTO 0.32 K/uL (0.00-0.80); NEUTROPHILS ABSOLUTE AUTO 4.55 K/uL (1.80-7.70); NEUTROPHILS PERCENT AUTO 57.3 % (41.0-71.0); PLATELET COUNT,PLT 260 K/uL (150-400); RED BLOOD CELL COUNT 4.55 M/uL (4.10-5.30); WHITE BLOOD CELL COUNT,WBC 7.93 K/uL (3.9-11.3)
[2023-06-12 13:00] LABS: A/G RATIO 0.8 (0.9-1.6); ALANINE AMINOTRANSFERASE,ALT 46 IU/L (14-63); ALBUMIN 3.6 g/dL (3.4-5.0); ALKALINE PHOSPHATASE 156 U/L (46-116); ASPARTATE AMNIOTRANSFERASE,AST 50 IU/L (15-37); BILIRUBIN TOTAL 0.6 mg/dL (0.2-1.0); BLOOD UREA NITROGEN,BUN 6 mg/dL (7.0-18.0); CALCIUM 8.7 mg/dL (8.5-10.1); CARBON DIOXIDE,CO2 23.4 mmol/L (21.0-32.0); CHLORIDE,CL 102 mmol/L (98-107); CREATININE 0.7 mg/dL (0.6-1.0); EST CRCL DRUG DOSING (CG) 76.04 mL/min; GLUCOSE RANDOM 265 mg/dL (74-106); POTASSIUM,K 3.6 mmol/L (3.5-5.1); SODIUM,NA 137 mmol/L (136-145)
[2023-06-12 13:08] LABS: ESTIMATED GFR 105 mL/min (>60)
[2023-06-12] MEDS: Sodium Chloride 0.9% 10 ML Syringe FLUSH PRN (13:24)
[2023-06-12] MEDS: Sodium Chloride 0.9% 2.5 ML Syringe FLUSH PRN (13:24)
[2023-06-12 13:37] LABS: APPEARANCE,URINE CLEAR; BILIRUBIN,URINE NEGATIVE (NEGATIVE); GLUCOSE,URINE 100 mg/dL (NEGATIVE); KETONES,URINE NEGATIVE (NEGATIVE); LEUKOCYTE ESTERASE,URINE NEGATIVE (NEGATIVE); NITRITE,URINE NEGATIVE (NEGATIVE); OCCULT BLOOD,URINE NEGATIVE (NEGATIVE); PH,URINE 5.5 (5.0-8.0); PROTEIN,URINE NEGATIVE (NEGATIVE); UROBILINOGEN,URINE 0.2 EU/dL (<2.0)
[2023-06-12 13:40] LABS: COLOR,URINE DARK YELLOW
== END 2023-06-12 14:42 | disposition home or self-care (01) ==
LOC: MW.ED 11:37
DX: R07.9 Chest pain, unspecified (principal); I10 Essential (primary) hypertension; E78.00 Pure hypercholesterolemia, unspecified; E11.9 Type 2 diabetes mellitus without complications; Z86.16 Personal history of COVID-19; Z90.49 Acquired absence of other specified parts of digestive tract; Z90.710 Acquired absence of both cervix and uterus; Z79.84 Long term (current) use of oral hypoglycemic drugs; Z79.899 Other long term (current) drug therapy; Z88.5 Allergy status to narcotic agent
CPT/HCPCS: 36415; 71045; 80053; 81003; 83690; 84484; 85025; 93005; 99285; J3490; 93010; 99282

== ENCOUNTER 2023-10-27 13:23 | Emergency (ER) | payer MEDICAID ==
[2023-10-27] MEDS: Ketorolac 30 MG/ML SDV IM STA (14:34)
[2023-10-27] MEDS: Promethazine 25 MG/ML SDV IM STA (14:34)
== END 2023-10-27 14:55 | disposition home or self-care (01) ==
LOC: MW.ED 13:23
DX: H66.91 Otitis media, unspecified, right ear (principal); E78.00 Pure hypercholesterolemia, unspecified; I10 Essential (primary) hypertension; E11.9 Type 2 diabetes mellitus without complications; Z79.4 Long term (current) use of insulin; Z79.84 Long term (current) use of oral hypoglycemic drugs; Z79.899 Other long term (current) drug therapy; Z88.5 Allergy status to narcotic agent; Z75.8 Other problems related to medical facilities and other health care
CPT/HCPCS: 96372; 99283; J1885; J2550

== ENCOUNTER 2024-01-27 17:13 | Emergency (ER) | payer MEDICAID ==
[2024-01-27] MEDS ORDERED: Sodium Chloride 0.9% 10 ML Syringe FLUSH PRN (19:17)
[2024-01-27] MEDS: Lidocaine 1% with EPINEPHrine 1:100,000 10 ML MDV INFILT ONE (19:35)
[2024-01-27 19:55] LABS: BASOPHILS ABSOLUTE AUTO 0.04 K/uL (0.00-0.20); BASOPHILS PERCENT AUTO 0.5 % (0.0-1.0); EOSINOPHILS ABSOLUTE AUTO 0.25 K/uL (0.00-0.45); EOSINOPHILS PERCENT AUTO 3.3 % (0.0-6.0); HEMATOCRIT 36.6 % (37.0-47.0); HEMOGLOBIN 12.1 g/dL (12.0-16.0); IMMATURE GRAN ABSOLUTE AUTO 0.03 K/uL (0.00-0.05); IMMATURE GRAN PERCENT AUTO 0.4 % (0.0-0.4); LYMPHOCYTES ABSOLUTE AUTO 3.11 K/uL (1.00-4.80); LYMPHOCYTES PERCENT AUTO 40.4 % (24.0-44.0); MEAN CORPUSCULAR HEMOGLOBIN 29.7 pg (28.0-32.0); MEAN CORPUSCULAR HGB CONC 33.1 g/dL (32.0-36.0); MEAN CORPUSCULAR VOLUME 89.7 fL (83.0-99.0); MEAN PLATELET VOLUME 8.1 fL (9.4-12.3); MONOCYTES PERCENT AUTO 5.2 % (0.0-8.0); NEUTROPHILS ABSOLUTE AUTO 3.86 K/uL (1.80-7.70); NEUTROPHILS PERCENT AUTO 50.2 % (41.0-71.0); PLATELET COUNT,PLT 285 K/uL (150-400); RED BLOOD CELL COUNT 4.08 M/uL (4.10-5.30); WHITE BLOOD CELL COUNT,WBC 7.69 K/uL (3.9-11.3)
[2024-01-27 20:18] LABS: A/G RATIO 0.8 (0.9-1.6); ALBUMIN 3.6 g/dL (3.4-5.0); BILIRUBIN TOTAL 0.4 mg/dL (0.2-1.0); C-REACTIVE PROTEIN 1.1 mg/dL (<0.3); CALCIUM 9.4 mg/dL (8.5-10.1); CARBON DIOXIDE,CO2 28.9 mmol/L (21.0-32.0); CREATININE 0.6 mg/dL (0.6-1.0); EST CRCL DRUG DOSING (CG) 88.72 mL/min; POTASSIUM,K 3.4 mmol/L (3.5-5.1)
[2024-01-27] MEDS: Iopamidol 755 MG/ML 500 ML Multipack Bottle IVPUSH STA (20:29)
== END 2024-01-27 23:03 | disposition home or self-care (01) ==
LOC: MW.ED 17:13
DX: L02.211 Cutaneous abscess of abdominal wall (principal); L90.5 Scar conditions and fibrosis of skin; I10 Essential (primary) hypertension; E78.00 Pure hypercholesterolemia, unspecified; E11.9 Type 2 diabetes mellitus without complications; Z90.49 Acquired absence of other specified parts of digestive tract; Z79.899 Other long term (current) drug therapy; Z88.5 Allergy status to narcotic agent
CPT/HCPCS: 36415; 74177; 80053; 85025; 85652; 86140; 99284; Q9967; J3490